=== PATIENT | male | born 1965 | race African-American/Black ===

== ENCOUNTER 2024-01-04 15:51 | Emergency (ER) | payer OTHER ==
[~2024-01-04] VITALS: Ht 177.8 cm; Wt 81.8 kg
[2024-01-04 15:58] VITALS: BP 154/85; TEMP 99.4
[2024-01-04 17:22] LABS: COVID AG,FIA SOURCE NASAL SWAB
[2024-01-04 17:42] LABS: INFLUENZA TYPE A NEGATIVE FOR TYPE A (NEGATIVE); SARS-COV2 (COVID) ANTIGEN,FIA Negative (Negative)
[2024-01-04 18:10] LABS: INFLUENZA TYPE B POSITIVE FOR TYPE B (NEGATIVE)
[2024-01-04] MEDS: ACETAMINOPHEN 500 MG TABLET PO ONE (18:45)
[2024-01-04] MEDS: BENZONATATE 100 MG CAPSULE PO ONE (18:45)
[2024-01-04] MEDS: GuaiFENesin/CODEINE [SUGAR-FREE] 200-20MG/10 ML LIQUID UDCUP PO ONE (18:45)
[2024-01-04] MEDS: IBUPROFEN 600 MG TABLET PO ONE (18:45)
[2024-01-04] MEDS ORDERED: ACET-2080 PO (18:48)
[2024-01-04] MEDS ORDERED: IBUP-1554 PO (18:48)
[2024-01-04] MEDS ORDERED: BENZ-227 PO (18:48)
[2024-01-04] MEDS ORDERED: GUAIFDM PO (18:48)
[2024-01-04] MEDS: ALBUTEROL SULFATE HFA 90 MCG/PUFF 8 GM INHALER IH ONE (19:03)
[2024-01-04 19:05] VITALS: PULSE 104; RESP 18; O2SAT 97
== END 2024-01-04 19:39 | disposition home or self-care (01) ==
LOC: EMS 15:51
DX: J20.9 Acute bronchitis, unspecified (principal); J10.1 Influenza due to other identified influenza virus with other respiratory manifestations; Z59.00 Homelessness unspecified; Z20.822 Contact with and (suspected) exposure to COVID-19
CPT/HCPCS: 99284; 71045; 87426; 87804; 94640; J3535